=== PATIENT | male | born 1975 | race African-American/Black ===

== ENCOUNTER 2024-07-19 05:43 | Emergency (ER) | payer OTHER ==
[~2024-07-19] VITALS: Ht 182.9 cm; Wt 81.8 kg
[2024-07-19 05:48] VITALS: BP 139/79; PULSE 84; RESP 17; TEMP 98.9; O2SAT 99
[2024-07-19] MEDS: dexAMETHasone 4 MG TABLET PO ONE (06:52)
[2024-07-19] MEDS: IBUPROFEN 400 MG TABLET PO ONE (06:52)
[2024-07-19] MEDS: CLINDAMYCIN 600 MG/D5% WATER 50 ML IV ONE (07:52)
[2024-07-19] MEDS ORDERED: CLIN-26 PO (08:07)
== END 2024-07-19 08:33 | disposition home or self-care (01) ==
LOC: EMS 05:43
DX: K04.7 Periapical abscess without sinus (principal); F12.90 Cannabis use, unspecified, uncomplicated
CPT/HCPCS: 99284; 96365; J3490; J8540

== ENCOUNTER 2024-07-21 21:06 | Emergency (ER) | payer OTHER ==
[~2024-07-21] VITALS: Ht 182.9 cm; Wt 79.5 kg
[~2024-07-21 21:06] MED LIST: CLIN-26 PO
[2024-07-21] MEDS: IBUPROFEN 600 MG TABLET PO ONE (21:34)
[2024-07-21 21:43] VITALS: BP 125/83; PULSE 93; RESP 18; TEMP 98.2; O2SAT 99
[2024-07-21] MEDS ORDERED: IOHEXOL 350 MG/ML 100 ML VIAL ONE (23:20)
[2024-07-21] MEDS ORDERED: SODIUM CHLORIDE 0.9% 100 ML ONE (23:20)
[2024-07-21 23:28] LABS: BASOPHILS % (AUTO) 0.6 % (0.0-2.0); EOSINOPHILS % (AUTO) 0 % (1.0-6.0); HEMATOCRIT 46.6 % (41-53); HEMOGLOBIN 15.6 g/dL (13.5-17.5); LYMPHOCYTES # (AUTO) 1.2 K/uL (1.0-4.8); LYMPHOCYTES % (AUTO) 11.5 % (22.0-44.0); MEAN CORPUSCULAR HGB CONC 33.4 G/dL (31.0-37.0); MEAN CORPUSCULAR VOLUME 84 fL (80-100); MONOCYTES # (AUTO) 1.5 K/uL (0.1-1.0); MONOCYTES % (AUTO) 13.7 % (2.0-9.0); NEUTROPHILS % (AUTO) 74.2 % (40.0-70.0); PLATELET COUNT (AUTO) 288 K/uL (150-450); RED BLOOD CELL COUNT(AUTO) 5.56 MIL/uL (4.50-5.90); RED CELL DISTRIBUTION WIDTH 12.8 % (11.5-14.5); WHITE BLOOD COUNT (AUTO) 10.8 K/uL (4.5-11.0)
[2024-07-21 23:35] LABS: ANION GAP 9 mmol/L (8-16); CARBON DIOXIDE 29 mmol/L (22-29); CHLORIDE 101 mmol/L (98-107); CREATININE 0.95 mg/dL (0.60-1.30); GLOMERULAR FILTR. RATE CALC > 60 mL/min (>60); GLUCOSE,RANDOM 115 mg/dL (70-110); POTASSIUM 3.8 mmol/L (3.5-5.1); SODIUM SERUM 139 mmol/L (136-145); UREA NITROGEN, BLOOD 10 mg/dL (7-18)
[2024-07-21 23:43] LABS: LACTIC ACID 0.8 mmol/L (0.4-2.0)
[2024-07-21] MEDS: AMPICILLIN SODIUM/SULBACTAM NA 3 GM in SODIUM CHLORIDE 0.9% 100 ML IV ONE (23:43)
[2024-07-22] MEDS ORDERED: ACET-3385 PO (01:52)
[2024-07-22] MEDS ORDERED: DOXY-354 PO (01:52)
== END 2024-07-22 02:33 | disposition left against medical advice (07) ==
LOC: EMS 21:15
DX: L02.01 Cutaneous abscess of face (principal)
CPT/HCPCS: 99285; 96365; 70486; 80048; 87205; 83605; 85025; 87040; 36415; 87070; Q9967; J0295; J7050; 96366